=== PATIENT | male | born 1985 ===

== ENCOUNTER 2016-12-18 13:28 | Emergency (ER) | payer OTHER ==
[2016-12-18 13:36] VITALS: RESP 18; O2SAT 99
[2016-12-18] MEDS ORDERED: Sodium Chloride 0.9% 1,000 ML IV STA (15:00)
[2016-12-18] MEDS ORDERED: Piperacillin/Tazobact 3.375 GM in Sodium Chloride 0.9% 100 ML IVPB STA (15:00)
[2016-12-18] MEDS ORDERED: Vancomycin 1 g Inj ONE (15:06)
[2016-12-18] MEDS ORDERED: Piperacillin/Tazobact 3.375 gm Inj IVPB ONE (15:06)
[2016-12-18 15:37] LABS: BASO # 0.1 K/uL (0.0-0.2); BASO % 0.3 % (0.0-2.0); EOS # 0.1 K/uL (0.0-0.7); EOS % 0.6 % (0.0-4.0); LYMPH # 1.6 K/uL (1.0-4.3); LYMPH % 10.8 % (20.0-40.0); MEAN CELL VOLUME 89.5 fl (80.0-94.0); MEAN CORPUSCULAR HEMOGLOBIN 29.8 pg (27.0-31.0); MEAN CORPUSCULAR HGB CONC 33.3 g/dL (33.0-37.0); MEAN PLATELET VOLUME 8.2 fl (7.2-11.7); MONO # 1.1 K/uL (0.0-0.8); MONO % 7.3 % (0.0-10.0); NEUT # 11.8 K/uL (1.8-7.0); NRBC % 0.1 % (0.0-0.0); RED CELL DISTRIBUTION WIDTH 13.8 % (11.5-14.5); WHITE BLOOD COUNT 14.5 K/uL (4.8-10.8)
[2016-12-18 15:44] LABS: ALB/GLOB RATIO 1.3 (1.0-2.1); ALKALINE PHOSPHATASE 78 U/L (38-126); ALT/SGPT 46 U/L (21-72); AST/SGOT 33 U/L (17-59); BILIRUBIN,TOTAL 0.8 mg/dl (0.2-1.3); BLOOD UREA NITROGEN 14 mg/dl (9-20); CALCIUM 9.6 mg/dL (8.4-10.2); CARBON DIOXIDE 24 mmol/L (22-30); CHLORIDE 101 mmol/L (98-107); GFR AFRICAN-AMERICAN > 60; GLUCOSE,RANDOM 98 mg/dL (75-110); POTASSIUM 4.3 MMOL/L (3.6-5.0); SODIUM 137 mmol/l (132-148); TOTAL PROTEIN 8.1 G/DL (6.3-8.2)
--- NOTE | 2016-12-18 16:52 | RAD ---
PROCEDURE: Radiographs of the left tibia and fibula. HISTORY: INFECTION COMPARISON: None available. TECHNIQUE: Frontal and lateral views obtained. FINDINGS: BONES: Osseous structures intact with no cortical destructive changes. JOINT SPACES: Joint spaces preserved. OTHER FINDINGS: There appears to be localized of soft tissue swelling pretibial soft tissue swelling approximately distal 1/3 right lower extremity. Findings could represent localized cellulitis. Possibility of a small phlegmon not excluded. No gas seen within the soft tissues. . IMPRESSION: Mild localized pretibial soft tissue swelling distal 1/3 right lower extremity. Rule out the cellulitis versus small phlegmon. No gas seen within the soft tissues.
--- NOTE | 2016-12-18 17:26 | ED PDOC ---
Lower Extremity Pain/Injury Time Seen by Provider: 12/18/16 13:57 Chief Complaint (Nursing): Lower Extremity Problem/Injury Chief Complaint (Provider): right leg wound History Per: Patient, Family (Family member at bedside for pakistani translation on behalf of patient) Additional Complaint(s): 31-year-old male with no past medical history presents to emergency department for evaluation of right leg wound. Patient states that he struck his right leg against an object at work 2 days ago sustaining small open wound. Since then he has noticed increased swelling, redness and drainage. Patient did not measure his temperature but states that he has felt warm. Past Medical History Reviewed: Historical Data, Nursing Documentation, Vital Signs Vital Signs: Last Vital Signs Temp 99.4 F 12/18/16 13:32 Pulse 96 H 12/18/16 13:32 Resp 18 12/18/16 13:32 BP 136/73 12/18/16 13:32 Pulse Ox 99 12/18/16 13:32 - Medical History PMH: No Chronic Diseases - Surgical History Surgical History: No Surg Hx - Family History Family History: States: No Known Family Hx - Living Arrangements Living Arrangements: With Family - Social History Current smoker - smoking cessation education provided: No Alcohol: None Drugs: Denies - Home Medications Home Medications: Ambulatory Orders Medication Instructions Recorded Amoxicillin/Clavulanate [Augmentin 1 tab PO BID #20 tab 12/18/16 875 MG-125 MG] Ibuprofen [Motrin Tab] 800 mg PO Q8 PRN #20 tab 12/18/16 Sulfamethoxazole/Trimethoprim 1 tab PO BID #20 tab 12/18/16 [Bactrim DS 800 mg-160 mg] - Allergies Allergies/Adverse Reactions: Allergies Allergy/AdvReac Type Severity Reaction Status Date / Time No Known Allergies Allergy Verified 12/18/16 13:32 Review of Systems ROS Statement: Except As Marked, All Systems Reviewed And Found Negative Constitutional: Positive for: Fever (tactile) Skin: Positive for: Other (right leg wound ) Physical Exam - Reviewed Nursing Documentation Reviewed: Yes Vital Signs Reviewed: Yes - Physical Exam Appears: Positive for: Well, Non-toxic, No Acute Distress Skin: Negative for: Rash Eye Exam: Positive for: Normal appearance, EOMI, PERRL Cardiovascular/Chest: Positive for: Regular Rate, Rhythm Respiratory: Positive for: Normal Breath Sounds Extremity: Positive for: Other (Actively draining superficial abscess noted to right narayanan with localized surrounding erythema and warmth consistent with cellulitis, no erythematous streaking, mildly tender to palpation, normal distal sensation) Neurologic/Psych: Positive for: Alert, Oriented - Laboratory Results Result Diagrams: 12/18/16 15:30 12/18/16 15:10 - ECG O2 Sat by Pulse Oximetry: 99 Pulse Ox Interpretation: Normal - Other Rad Right tib/fib x-ray X-Ray: Read By Radiologist X-Ray Interpretation: see below Medical Decision Making Medical Decision Makin31 year old with right leg infection Plan: Blood culture wound culture CBC CMP X-ray right tib/fib IVF IV zosyn and IV vanco IV toradol X-ray: IMPRESSION: Mild localized pretibial soft tissue swelling distal 1/3 right lower extremity. Rule out the cellulitis versus small phlegmon. No gas seen within the soft tissues. Lactate is normal. Repeat vitals indicate no fever, no tachycardia, no hypotension. Patient tolerated IV antibiotics well. He states the pain is improved after toradol dose. Cellulitis borders were marked with ink on patient's right lower extremity. Patient was discharged with prescriptions for Motrin, Bactrim and Augmentin. He was advised to return to emergency department immediately if infection worsens, otherwise to return in 2 days for wound recheck. Patient verbalized understanding of the importance of close follow-up. Disposition - Clinical Impression Clinical Impression: Abscess of leg, Cellulitis of leg - Patient ED Disposition Is Patient to be Admitted: No Counseled Patient/Family Regarding: Studies Performed, Diagnosis, Need For Followup, Rx Given - Disposition Referrals: [facility] [Outside] Disposition: Routine/Home Disposition Time: 18:28 Condition: STABLE Additional Instructions: APPLY WARM COMPRESSES TO AFFECTED AREA WITH EPSOM SALTS OFTEN POSSIBLE. TAKE RX MEDS DIRECTED. RETURN TO ED IN 2 DAYS FOR WOUND RE-CHECK OR SOONER IF ACUTELY WORSE. Prescriptions: Amoxicillin/Clavulanate [Augmentin 875 MG-125 MG] 1 tab PO BID #20 tab Ibuprofen [Motrin Tab] 800 mg PO Q8 PRN #20 tab PRN Reason: Pain, Moderate (4-7) Sulfamethoxazole/Trimethoprim [Bactrim DS 800 mg-160 mg] 1 tab PO BID #20 tab Instructions: Cellulitis (ED), Abscess (ED) Forms: [employer] (Danish), [employer] (Arabic) Print Language: ITALIAN Results - Lab Results Lab Results: 12/18/16 12/18/16 12/18/16 18:15 15:30 15:10 WBC 14.5 H RBC 4.80 Hgb 14.3 Hct 43.0 MCV 89.5 MCH 29.8 MCHC 33.3 RDW 13.8 Plt Count 294 MPV 8.2 Neut % (Auto) 81.0 H Lymph % (Auto) 10.8 L Howard % (Auto) 7.3 Eos % (Auto) 0.6 Baso % (Auto) 0.3 Neut # 11.8 H Lymph # 1.6 Howard # 1.1 H Eos # 0.1 Baso # 0.1 pO2 29 L VBG pH 7.39 VBG pCO2 44 VBG HCO3 24.7 VBG Total CO2 28.0 VBG O2 Sat (Calc) 61.3 VBG Base Excess 1.2 VBG Potassium 3.8 Glucose 92 Lactate 1.0 FiO2 21.0 Sodium 136.0 137 Potassium 4.3 Chloride 102.0 101 Carbon Dioxide 24 Anion Gap 16 BUN 14 Creatinine 0.8 Est GFR ( Amer) > 60 Est GFR (Non-Af Amer) > 60 Random Glucose 98 Calcium 9.6 Total Bilirubin 0.8 AST 33 ALT 46 Alkaline Phosphatase 78 Total Protein 8.1 Albumin 4.6 Globulin 3.5 Albumin/Globulin Ratio 1.3 Venous Blood Potassium 3.8
[2016-12-18 18:21] LABS: VENOUS BLOOD GAS BASE EXCESS 1.2 mmol/L (0.0-2.0); VENOUS BLOOD GAS PCO2 44 mmHg (40-60); VENOUS BLOOD PH 7.39 (7.32-7.43)
[2016-12-18 18:36] VITALS: BP 121/81; PULSE 87; TEMP 98.5
== END 2016-12-18 19:10 | disposition home or self-care (01) ==
LOC: H.ER 13:28
DX: L03.116 Cellulitis of left lower limb (principal)
CPT/HCPCS: 73590; 80053; 82803; 85025; 87040; 87070; 87181; 96361; 96365; 96366; 96367; 96375; 99284; J1885; J2543; J7040

== ENCOUNTER 2016-12-20 14:33 | Emergency (ER) | payer OTHER ==
[2016-12-20] MEDS ORDERED: Piperacillin/Tazobact 4.5 GM in Sodium Chloride 0.9% 100 ML IVPB STA (15:20)
[2016-12-20] MEDS ORDERED: Sodium Chloride 0.9% 1,000 ML IV SCH (15:30)
--- NOTE | 2016-12-20 15:36 | ED PDOC ---
HPI: Wound Care - HPI Time Seen by Provider: 12/20/16 14:57 Chief Complaint (Nursing): Abnormal Skin Integrity Chief Complaint (Provider): Wound check History Per: Patient Exam Limitations: no limitations Onset/Duration Of Symptoms: Days (x2) Current Symptoms Are (Timing): Still Present Additional Complaint(s): Leno Jimenez is a 31 year old male who presents to the emergency department for a wound evaluation of his right narayanan associated with pain and swelling status post sustaining puncture wound on leg at work on 12/16/16. Patient was seen in ED 2 days ago when he noted significant swelling and was discharged with Augmentin and Bactrim. Denied any fevers or chills. PMD: none provided Past Medical History Reviewed: Historical Data, Nursing Documentation, Vital Signs Vital Signs: Last Vital Signs Temp 98.0 F 12/20/16 14:46 Pulse 87 12/20/16 14:46 Resp 16 12/20/16 14:46 BP 126/66 12/20/16 14:46 Pulse Ox 99 12/20/16 14:46 - Medical History PMH: No Chronic Diseases - Family History Family History: States: Unknown Family Hx - Social History Current smoker - smoking cessation education provided: No Alcohol: None Drugs: Denies - Home Medications Home Medications: Ambulatory Orders Medication Instructions Recorded Amoxicillin/Clavulanate [Augmentin 1 tab PO BID #20 tab 12/18/16 875 MG-125 MG] Ibuprofen [Motrin Tab] 800 mg PO Q8 PRN #20 tab 12/18/16 Sulfamethoxazole/Trimethoprim 1 tab PO BID #20 tab 12/18/16 [Bactrim DS 800 mg-160 mg] - Allergies Allergies/Adverse Reactions: Allergies Allergy/AdvReac Type Severity Reaction Status Date / Time No Known Allergies Allergy Verified 12/18/16 13:32 Review of Systems ROS Statement: Except As Marked, All Systems Reviewed And Found Negative Constitutional: Negative for: Fever, Chills Musculoskeletal: Positive for: Leg Pain (right narayanan), Other (swelling of right narayanan wound) Physical Exam - Reviewed Nursing Documentation Reviewed: Yes Vital Signs Reviewed: Yes - Physical Exam Appears: Positive for: Well, Non-toxic, No Acute Distress Head Exam: Positive for: ATRAUMATIC, NORMAL INSPECTION, NORMOCEPHALIC Cardiovascular/Chest: Positive for: Regular Rate, Rhythm. Negative for: Chest Non Tender Respiratory: Positive for: Normal Breath Sounds. Negative for: Respiratory Distress Extremity: Positive for: Tenderness (right narayanan associated with erythema), Deformity (induration of right lower extremity; open wound mid-narayanan with pus express on exam), Swelling (right narayanan associated with erythematous border extended). Negative for: Normal ROM, Other Neurologic/Psych: Positive for: Alert, project internship II-XII, Oriented - Laboratory Results Result Diagrams: 12/20/16 16:03 12/20/16 16:03 - ECG O2 Sat by Pulse Oximetry: 99 (RA) Pulse Ox Interpretation: Normal Procedure: Wound Repair - Time Out Time Out: Side verified - Consent Obtained Consent obtained: Verbal - Performed by Performed by: Attending Physician - Indications Indication(s):: Incision wound - Location Location:: Right, Leg Shape:: Other Depth:: Subcutaneous fascia - Anesthetic Technique Anesthetic Technique: Topical, Local Local/Regional Anesthetic:: Lidocaine 1% w/epi - Debris Debris:: None - Patient tolerated procedure Patient Tolerated Procedure:: Well Medical Decision Making Medical Decision Making: Initial Impression: Cellulitis; MRSA Initial Plan: * VBG * Labs * Sed rate * NS 1,000ml IV per 1,000mls/hr * Vancocin 250ml IVPB * Zosyn 100ml IVPB * Blood culture Scribe Attestation: Documented by Fernanda Yanez, acting as a scribe for Michelle Gotti MD. Provider Scribe Attestation: All medical record entries made by the Scribe were at my direction and personally dictated by me. I have reviewed the chart and agree that the record accurately reflects my personal performance of the history, physical exam, medical decision making, and the department course for this patient. I have also personally directed, reviewed, and agree with the discharge instructions and disposition. Disposition - Clinical Impression Clinical Impression: Cellulitis of leg, Abscess of leg - Patient ED Disposition Is Patient to be Admitted: No Doctor Will See Patient In The: Office - Disposition Referrals: [facility] [Outside] [facility] [Outside] Disposition: Routine/Home Disposition Time: 17:20 Condition: IMPROVED Forms: [employer] (Rwandan) Print Language: WELSH - CLARA Present On Arrival: None
[2016-12-20 16:10] LABS: BASO % 0.3 % (0.0-2.0); EOS # 0.2 K/uL (0.0-0.7); EOS % 2.1 % (0.0-4.0); HEMATOCRIT 42.6 % (35.0-51.0); LYMPH # 1.7 K/uL (1.0-4.3); LYMPH % 16.9 % (20.0-40.0); MEAN CELL VOLUME 90.1 fl (80.0-94.0); MEAN CORPUSCULAR HEMOGLOBIN 29.8 pg (27.0-31.0); MEAN PLATELET VOLUME 7.7 fl (7.2-11.7); MONO # 0.8 K/uL (0.0-0.8); MONO % 7.8 % (0.0-10.0); NEUT # 7.3 K/uL (1.8-7.0); NEUT % 72.9 % (50.0-75.0); RED CELL DISTRIBUTION WIDTH 13.4 % (11.5-14.5)
[2016-12-20] MEDS ORDERED: Vancomycin 1 g Inj ONE (16:10)
[2016-12-20 16:16] LABS: VENOUS BLOOD GAS BASE EXCESS 1.5 mmol/L (0.0-2.0); VENOUS BLOOD GAS MODE ROOM AIR; VENOUS BLOOD GAS PCO2 49 mmHg (40-60); VENOUS BLOOD PH 7.36 (7.32-7.43)
[2016-12-20 16:21] LABS: ALB/GLOB RATIO 1.2 (1.0-2.1); ALKALINE PHOSPHATASE 79 U/L (38-126); ALT/SGPT 50 U/L (21-72); AST/SGOT 30 U/L (17-59); BILIRUBIN,TOTAL 0.4 mg/dl (0.2-1.3); BLOOD UREA NITROGEN 13 mg/dl (9-20); CALCIUM 9.2 mg/dL (8.4-10.2); CARBON DIOXIDE 25 mmol/L (22-30); CHLORIDE 104 mmol/L (98-107); GFR AFRICAN-AMERICAN > 60; GLUCOSE,RANDOM 82 mg/dL (75-110); POTASSIUM 4.2 MMOL/L (3.6-5.0); SODIUM 140 mmol/l (132-148); TOTAL PROTEIN 7.5 G/DL (6.3-8.2)
[2016-12-20] MEDS ORDERED: Lidocaine 1% w Epi 1:100,000 Inj ONE (16:24)
[2016-12-20] MEDS ORDERED: Tetanus/Diphtheria Toxoids 0.5 ml Syringe IM ONE (18:47)
[2016-12-20 19:06] VITALS: BP 108/60; PULSE 72; RESP 18; TEMP 98; O2SAT 100
== END 2016-12-20 19:17 | disposition home or self-care (01) ==
LOC: H.ER 14:33
DX: L02.415 Cutaneous abscess of right lower limb (principal); L03.115 Cellulitis of right lower limb
CPT/HCPCS: 10060; 80053; 82803; 85025; 85651; 87040; 90471; 90714; 99283; J2543; J7040

== ENCOUNTER 2016-12-22 09:10 | Emergency (ER) | payer OTHER ==
[2016-12-22 09:24] VITALS: BP 112/58; PULSE 75; RESP 16; TEMP 98.4; O2SAT 100
--- NOTE | 2016-12-22 09:31 | ED PDOC ---
HPI: Wound Care - HPI Time Seen by Provider: 12/22/16 09:24 Chief Complaint (Nursing): Wound Check History Per: Patient (S/p I&D abscsess right lower ext, packing fell out by itself. Erythema improved. No fever or chills. Taking PO antibiotics.) Quality Of Symptoms: Draining Severity: Mild Pain Scale Rating Of: 0 Past Medical History Vital Signs: Last Vital Signs Temp 98.4 F 12/22/16 09:18 Pulse 75 12/22/16 09:18 Resp 16 12/22/16 09:18 BP 112/58 L 12/22/16 09:18 Pulse Ox 100 12/22/16 09:18 - Medical History PMH: No Chronic Diseases - Family History Family History: States: Unknown Family Hx - Home Medications Home Medications: Ambulatory Orders Medication Instructions Recorded Amoxicillin/Clavulanate [Augmentin 1 tab PO BID #20 tab 12/18/16 875 MG-125 MG] Ibuprofen [Motrin Tab] 800 mg PO Q8 PRN #20 tab 12/18/16 Sulfamethoxazole/Trimethoprim 1 tab PO BID #20 tab 12/18/16 [Bactrim DS 800 mg-160 mg] - Allergies Allergies/Adverse Reactions: Allergies Allergy/AdvReac Type Severity Reaction Status Date / Time No Known Allergies Allergy Verified 12/18/16 13:32 Review of Systems Constitutional: Negative for: Fever, Chills Musculoskeletal: Negative for: Leg Pain Physical Exam - Physical Exam Appears: Positive for: Non-toxic Extremity: Positive for: Other (Minimal sersanguinous drainage from wound right pretibial area with minimal surrounding erythema.) - ECG O2 Sat by Pulse Oximetry: 100 Disposition - Clinical Impression Clinical Impression: Encounter for wound re-check - Patient ED Disposition Is Patient to be Admitted: No Counseled Patient/Family Regarding: Diagnosis, Need For Followup - Disposition Referrals: [facility] [Outside] Disposition: Routine/Home Disposition Time: 09:31 Condition: FAIR Instructions: Acute Wound Care (ED) Forms: [employer] (Maori) Print Language: COOK ISLANDER
== END 2016-12-22 09:57 | disposition home or self-care (01) ==
LOC: H.ER 09:10
DX: Z48.00 Encounter for change or removal of nonsurgical wound dressing (principal)

== ENCOUNTER 2017-12-05 09:52 | Emergency (ER) | payer OTHER ==
--- NOTE | 2017-12-05 10:23 | ED PDOC ---
HPI: Skin/Bite Injury Time Seen by Provider: 12/05/17 10:00 Chief Complaint (Nursing): Abnormal Skin Integrity History Per: Patient Onset/Duration Of Symptoms: Days (7) Current Symptoms Are (Timing): Still Present Location Of Injury: Right: Thigh, Left: Thigh, Anterior: Thigh Quality Of Symptoms: Itching Additional Complaint(s): Itchy inguinal rash bilat x 1 week. Also with follicular rash oh ant thighs bilat x 1 week. No drainage or fever. 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 Past Medical History - Medical History PMH: No Chronic Diseases - Family History Family History: States: Unknown Family Hx - Home Medications Home Medications: Ambulatory Orders Medication Instructions Recorded Cetirizine HCl [Zyrtec] 10 mg PO DAILY #10 capsule 12/05/17 Clotrimazole 1% Cream [Lotrimin 1% 1 applic TOP BID #2 tube 12/05/17 CREAM] Prednisone 50 mg PO DAILY #5 tab 12/05/17 - Allergies Allergies/Adverse Reactions: Allergies Allergy/AdvReac Type Severity Reaction Status Date / Time No Known Allergies Allergy Verified 12/05/17 10:14 Review of Systems Constitutional: Negative for: Fever Skin: Positive for: Rash Physical Exam - Physical Exam Appears: Positive for: Non-toxic, No Acute Distress Skin: Positive for: Rash (Inguinal artea bilat, erythemetous, confluent, moist. Thighs bilat anteriorly papular rash involving hair follicles. No purulent drainage) Disposition - Clinical Impression Clinical Impression: Tinea cruris, Folliculitis - Patient ED Disposition Is Patient to be Admitted: No Counseled Patient/Family Regarding: Diagnosis, Need For Followup, Rx Given - Disposition Referrals: [facility] [Outside] Disposition: Routine/Home Disposition Time: 10:23 Condition: FAIR Prescriptions: Cetirizine HCl [Zyrtec] 10 mg PO DAILY #10 capsule Clotrimazole 1% Cream [Lotrimin 1% CREAM] 1 applic TOP BID #2 tube Prednisone 50 mg PO DAILY #5 tab Instructions: Folliculitis, Jock Itch Print Language: TAJIK
== END 2017-12-05 11:00 | disposition home or self-care (01) ==
LOC: H.ER 09:52
DX: B35.3 Tinea pedis (principal); L73.9 Follicular disorder, unspecified